=== PATIENT | female | born 1985 | race Caucasian/White ===

== ENCOUNTER 2025-04-30 22:33 | Inpatient (IN) ==
[2025-04-30] MEDS: SODIUM CHLORIDE 0.9% 1,000 ML IV ONE (22:42)
[2025-04-30] MEDS: SODIUM BICARB 8.4% INJ 50 MEQ/50 ML SYR IV ONE (22:52)
[2025-04-30] MEDS: LACTATED RINGER'S 2,000 ML IV ONE (22:53)
[2025-04-30] MEDS: CALCIUM CHLORIDE 10% 1,000 MG in DEXTROSE 5% 50 ML IV STA (22:54)
[2025-04-30] MEDS: PIPERACILLIN/TAZOBACTAM 4.5 GM/100 ML BAG IV ONE (22:57)
[2025-04-30 23:00] LABS: iSTAT Art Bld Gas Base Excess < -30.0 meg/L (-9-1.8)
[2025-04-30] MEDS: TXA 10% Non-IV Routes 100 MG/ML VIAL ONE ×2 (23:00→23:59)
[2025-04-30 23:03] LABS: Hematocrit (blood only) 26.5 % (37.0-47.0); Hemoglobin 8.0 g/dl (12.0-16.0); Mean Corpuscular Hemoglobin 31.9 pg (25.0-34.0); Mean Corpuscular Volume 105.6 fL (80.0-100.0); Platelet Count 213 K/uL (130-400); RDW Standard Deviation 57.0 fL (36.4-46.3); Red Blood Count 2.51 M/uL (4.20-5.40); White Blood Count 33.45 K/ul (4.8-10.8)
[2025-04-30] MEDS ORDERED: CARBOHYDRATES FOR HYPOGLYCEMIA PO PRN (23:04)
[2025-04-30] MEDS ORDERED: GLUCOSE 10 TAB/TUBE PO PRN (23:04)
[2025-04-30 23:08] LABS: Pregnancy Test, Serum Positive (Negative)
[2025-04-30] MEDS ORDERED: GLUCAGON FOR INJ 1 MG VIAL SQ PRN (23:08)
[2025-04-30] MEDS ORDERED: DEXTROSE 50% 50 ML SYRINGE IV PRN (23:08)
[2025-04-30] MEDS: CALCIUM CHLORIDE 10% 10 ML SYR IV ONE (23:23)
[2025-04-30 23:28] LABS: Acanthocytes 2+
[2025-04-30 23:30] LABS: Hemoglobin A1C 5.6 % (4.5-5.6)
[2025-04-30 23:32] LABS: ANC (manual) 21.74 K/uL (1.4-6.5); INR 1.1 (0.9-1.1); Prothrombin Time 12.3 Seconds (9.0-12.0)
[2025-04-30 23:37] LABS: Alanine Aminotransferase 11 U/L (7-52); Albumin Globulin Ratio 1.4 (0.9-2); Alkaline Phosphatase 44 U/L (34-104); Anion Gap 29 (3-11); Bilirubin,Total 0.3 mg/dl (0.2-1.0); Blood Urea Nitrogen 20 mg/dl (6-23); Calcium 7.8 mg/dl (8.6-10.3); Carbon Dioxide 5 mmol/L (21-32); Chloride 106 mmol/L (98-107); Globulin 1.7 gm/dl (2.5-4.0); Glucose 436 mg/dl (70-99(Fasting)); Lipase 50 U/L (11-82); Magnesium 2.9 mg/dl (1.7-2.4); Potassium 4.0 mmol/L (3.5-5.1); Sodium 140 mmol/L (136-145); Total Protein 4.1 gm/dl (6.0-8.3)
--- NOTE | 2025-04-30 23:41 | Emergency Department Note ---
Impression & Plan Vaginal bleeding, NOAH (acute kidney injury), Hypotension, Cardiac arrest, , DKA (diabetic ketoacidosis) ED Provider Note ED Provider Note NAME: LORRIE PATTERSON AGE:40 SEX: Female : 1985 ARRIVES VIA: EMS INFORMANT: Patient, EMS ED PROVIDER(s): Tarah Simmons DO CHIEF COMPLAINT: Vaginal bleeding, hypotension, cardiac arrest HPI: This is a 40-year-old female brought in by EMS due to concern for vaginal bleeding and unresponsive episode. EMS reported patient began having bleeding yesterday and thought she was having a miscarriage as she had had a recent positive home test. Family reported to EMS patient had an episode of passing out and then was unresponsive. Upon EMS arrival she was noted to be hypotensive, and minimally arousable, with some accompanying difficulty breathing. Upon rendezvous with another laundrette owner, patient still hypotensive after IV fluids were started, and subsequently arrested. EMS coded the patient for 7 to 8 minutes before achieving ROSC. She received CPR via the Denny and 2 doses of cardiac epi. Patient then given 1 unit of blood via EMS while IV fluids were continued. She was given 1gm TXA by EMS also. Patient had assisted ventilations with bagging, she was never intubated. EMS did note patient passed a softball sized clot during transport and continued to have active bleeding. Upon arrival here patient awake and talking, denied any chest pain, abdominal pain, or difficulty breathing. She stated this was her third , and that she had not had any OB care yet. PAST MEDICAL HISTORY:See Below PAST SURGICAL HISTORY:See Below FAMILY HISTORY:See Below SOCIAL HISTORY:See Below HOME MEDICATIONS:See Below ALLERGIES:See Below VITALS:See Below PHYSICAL EXAMINATION: GENERAL: alert, ill appearing, well nourished, no distress, non-toxic HEAD: nc/at EYE EXAM: normal conjunctiva, PERRL and EOM's grossly intact OROPHARYNX: no exudate, no erythema, lips, buccal mucosa, and tongue normal and mucous membranes are very dry NECK: supple, no nuchal rigidity, no adenopathy, non-tender LUNGS: Clear to auscultation. Normal chest wall mechanics, no w/r/r HEART: no murmurs, S1 normal and S2 normal ABDOMEN: abdomen soft, non-tender, normo-active bowel sounds, no masses, no rebound or guarding. REVIEW SCHEDULING COORDINATOR: normal external genitalia, bleeding and fresh clots noted at the vaginal introitus SKIN: no rashes, petechiae, orbruising; pallor UPPER EXTREMITIES: upper extremities are grossly normal. FROM, nml pulses b/l. No evidence of trauma or deformity. LOWER EXTREMITIES: No pitting edema. FROM, nml pulses b/l. No evidence of trauma or deformity. NEURO EXAM: Normal sensorium, cranial nerves II-XII grossly intact, normal speech, no facial droop,nogross weakness of arms, no gross weakness of legs. Gross sensation intact. No ataxia. Vital Signs: reviewed and remarkable Differential Diagnosis: Hemorrhagic shock, dysrhythmia, infection, NOAH, electrolyte abnormality, DKA, sepsis, placental abruption, ectopic , spontaneous , uterine rupture, as well as others were considered MEDICAL DECISION MAKING: This is a 40-year-old female brought in by EMS after cardiac arrest likely secondary to hemorrhagic shock from ongoing vaginal bleeding. Upon arrival patient awake and talking, hypotensive and tachycardic and ill-appearing. She had received a total of 1800 mL of IV fluids, 1gm, TXA, and 1 unit of packed red cells. Blood pressure here slightly improved compared to prehospital. Patient denied any pain or difficulty breathing. She was asking for something to drink. Patient stated no OB evaluation or confirmatory ultrasound yet since the positive home test. She confirmed bleeding started yesterday evening. Additional uncrossed match blood had been called for prior to patient's arrival and was ready at the bedside. Given the persistent hypotension and ongoing bleeding, IV fluids were continued and patient transfused an additional 2 units of packed red cells. Additional IV access was obtained, labs drawn and sent, and bedside ultrasound performed. No obvious IUP, no obvious hemoperitoneum. No large clots or products of conception noted with the vaginal bleeding seen on exam. On-call RISK COMPLIANCE ANALYST was contacted and asked to come to bedside to help manage the patient. Patient with improving blood pressures with additional IV fluids and blood products. [id number] BMP showed a first hemoglobin of 7.5, creatinine of 2.2, and glucose of 395. Patient denied any current medications or known past medical history. Patient noted to have an anion gap of 26. First [id number] ABG drawn by RT showed a pH of 6.7 and bicarb of less than 5. Following this result, patient given 2 amps of bicarb and 1 amp of calcium. Patient's blood pressure slowly improved. Following the 2 units at bedside, we held off on further transfusion pending further OB evaluation. Anesthesia also presented to bedside given concern for possible need for emergent operative intervention. Patient given empiric IV Zosyn additionally. seal delivery vehicle team technician contacted and asked to come to bedside urgently to assist with OB evaluation. Please see the OB consultation additionally as she was able to remove several clots and the bleeding did seem to slow. Patient's blood pressure did begin to drift down during this and so a another unit of packed cells was added. Ultrasound confirmed no further retained POC's. Specimen was sent for pathology from this OB evaluation at bedside. OB did not feel she needed taken to the OR at this time. Bicarb drip and insulin drip added based on those preliminary results. Patient's EKG without any obvious abnormalities. Other labs still pending while all of this was occurring. Patient's blood pressure improved following additional transfusion and continued IV fluid resuscitation. Initial Evans catheter placed without any return of urine. Following 3 L patient slowly began to produce urine. On-call ICU TRUCK DRIVER TEAMSTER was contacted also for further assistance in patient management and inpatient hospitalist team contacted additionally. Patient's blood pressure remained stable following the transfusion here. Further blood products were held as a precaution. MTP not activated as patient's bleeding began to slow and blood pressure stabilized after third unit transfused here in the ER (fourth unit overall). Consultation(s): 2300: Dr. Justin came to bedside and is evaluating the patient. 2322: ICU TRUCK DRIVER TEAMSTER came to bedside to assist with mgmt. 2341: Discussed with Dr. Ruiz, [facility] hospitalist team, for addition evaluation and mgmt. ER Treatment Provided: See below Diagnostics Interpreted By Me: -ECG: Sinus tachycardia at 108, normal axis, normal intervals, no acute ST/T wave changes -Cardiac Monitoring: An order was placed for continuous cardiac monitoring. The monitor shows a rate of 120 with sinus tachycardia rhythm. -Laboratory studies: As stated above and show below. -Imaging studies: X-ray Chest: A single view study of the chest was reviewed and was negative for cardiomegaly, focal infiltrate, effusion, pulmonary edema, or wide mediastinum. Triage Nursing Note Reviewed Prior/Outside Records Reviewed Critical Care: Critical care of 78 min performed to assess and manage high likelihood of life-threatening hemorrhagic shock and cardiac arrest, involving labs and imaging performed with assessment to evaluate vaginal bleeding diagnosis and unresponsive episode with frequent reassessment. This time includes bedside time, treatment discussions with patient/family/consultants, documentation time and excludes procedure time. Past Med/Surg History Problem List (Updated 05/01/25 @ 02:22 by Traah Simmons, DO) DKA (diabetic ketoacidosis) (Acute) (Acute) Cardiac arrest (Acute) Vaginal bleeding (Acute) Hyperglycemia, unspecified High anion gap metabolic acidosis NOAH (acute kidney injury) (Acute) Spontaneous complicated by delayed or excessive hemorrhage Hypotension (Acute) Hemorrhage Complete miscarriage Medical History Migraine Family History Other Migraine Social History Smoking Status: Current every day smoker Tobacco Type: Cigarettes Cigarettes Per Day: 3; Second Hand Exposure: No; Do You Dip or Chew Tobacco: No; Tobacco Cessation Education Requested by Patient: No Hx Alcohol Use: No Hx Substance Use: No Preferred Language: Greek Communication Ability: Effective Human Anatomy Teacher Required: No Beliefs That Will Affect Care: None Current Living Situation: Family Current Living Situation Comment: lives with mother Other Information That Helps Us Care for You: No Feels Safe at Home: Yes Safety Concerns: Feels Safe At This Time Assistive Devices: None Allergies Allergies Allergy/AdvReac Type Severity Reaction Status Date / Time latex Allergy Severe Swelling Verified 04/30/25 22:56 of Lip/Tongue/Throat procaine [From Novocain] Allergy Severe Anaphylaxis--ALL Verified 04/30/25 22:56 "RADHA" MEDICATIONS Home Meds Home Medications Medication Instructions Recorded Confirmed ibuprofen 200 mg tablet 400 - 600 mg PO DIRECTED PRN 04/30/25 04/30/25 Pain Results & Data (ED) Vital Signs Vital Signs - 24 hr 04/30/25 22:33 04/30/25 22:36 04/30/25 22:37 Temperature Pulse Rate 116 H 117 H Pulse Rate from SpO2 Sensor 115 H Respiratory Rate 34 H Blood Pressure Blood Pressure Mean Pulse Oximetry 100 Sepsis Recent Fever Within 48 Hours No Sepsis New/Unexplained Change in Mental Status N/A Sepsis Action Taken by Nursing No Action Required 04/30/25 22:40 04/30/25 22:40 04/30/25 22:40 Temperature Pulse Rate Pulse Rate from SpO2 Sensor Respiratory Rate Blood Pressure 102/83 102/83 102/83 Blood Pressure Mean 95 95 95 Pulse Oximetry Sepsis Recent Fever Within 48 Hours Sepsis New/Unexplained Change in Mental Status Sepsis Action Taken by Nursing 04/30/25 22:42 04/30/25 22:45 04/30/25 23:05 Temperature Pulse Rate 120 H 121 H Pulse Rate from SpO2 Sensor 122 H 122 H Respiratory Rate 37 H 37 H Blood Pressure 95/66 L Blood Pressure Mean 73 Pulse Oximetry 100 95 Sepsis Recent Fever Within 48 Hours Sepsis New/Unexplained Change in Mental Status Sepsis Action Taken by Nursing 04/30/25 23:11 04/30/25 23:11 04/30/25 23:12 Temperature Pulse Rate 123 H Pulse Rate from SpO2 Sensor 123 H Respiratory Rate 33 H Blood Pressure 120/86 120/86 Blood Pressure Mean 100 100 Pulse Oximetry 100 Sepsis Recent Fever Within 48 Hours Sepsis New/Unexplained Change in Mental Status Sepsis Action Taken by Nursing 04/30/25 23:18 04/30/25 23:26 04/30/25 23:30 Temperature 33.6 C L Pulse Rate 119 H 113 H Pulse Rate from SpO2 Sensor 120 H 113 H Respiratory Rate 34 H 28 H Blood Pressure 109/82 Blood Pressure Mean 90 Pulse Oximetry 100 100 Sepsis Recent Fever Within 48 Hours Sepsis New/Unexplained Change in Mental Status Sepsis Action Taken by Nursing Laboratory Data 05/01/25 01:16 05/01/25 01:16 Lab Results 04/30/25 04/30/25 04/30/25 Range/Units 22:43 22:46 22:50 WBC 33.45 H* (4.8-10.8) K/ul RBC 2.51 L (4.20-5.40) M/uL Hgb 8.0 L (12.0-16.0) g/dl POC Hgb 7.8 L (12.0-16.0) g/dl Hct 26.5 L (37.0-47.0) % POC Hct 23 L (37-47) % MCV 105.6 H (80.0-100.0) fL MCH 31.9 (25.0-34.0) pg MCHC 30.2 L (32.0-36.0) g/dL RDW Std Deviation 57.0 H (36.4-46.3) fL RDW Coeff of Siddhartha 14.6 H (11.5-14.5) % Plt Count 213 (130-400) K/uL MPV 11.7 (9.4-12.4) fL Absolute Nucleated RBC 0.02 (0.00-0.12) K/uL Nucleated RBC % (auto) 0.1 % Neutrophils % (Manual) 65 % Neutrophils # (Manual) 21.74 H (1.40-6.50) K/uL Total Absolute Neuts 21.74 H (1.4-6.5) K/uL Acanthocytes (Spur) 2+ PT 12.3 H (9.0-12.0) Seconds INR 1.1 (0.9-1.1) POC pH 6.74 L* (7.35-7.45) POC pCO2 14 L (35-46) mmHg POC pO2 152 H (80-95) mmHg POC HCO3 2 L (19-24) cary/L POC Total CO2 < 5 L* (24-31) mmol/L POC Base Excess < -30.0 L (-9-1.8) cary/L POC ABG O2 Sat 95.0 (90-95) % POC Sodium 136 (135-144) mmol/L Sodium 140 (136-145) mmol/L POC Potassium 4.8 (3.3-5.0) mmol/L Potassium 4.0 (3.5-5.1) mmol/L Chloride 106 (98-107) mmol/L Carbon Dioxide 5 L* (21-32) mmol/L Anion Gap 29 H (3-11) BUN 20 (6-23) mg/dl Creatinine 2.58 H (0.6-1.2) mg/dl Est Cr Clr Drug Dosing Not Reportable eGFR 23.57 BUN/Creatinine Ratio 7.8 L (10-20) Glucose 436 H* (70-99(Fasting)) mg/dl Estimat Average Glucose 114 mg/dl Hemoglobin A1c 5.6 (4.5-5.6) % Calcium 7.8 L (8.6-10.3) mg/dl Magnesium 2.9 H (1.7-2.4) mg/dl Total Bilirubin 0.3 (0.2-1.0) mg/dl AST 18 (13-39) U/L ALT 11 (7-52) U/L Alkaline Phosphatase 44 (34-104) U/L Troponin I High Sens 247.2 H* (0-14) pg/ml Total Protein 4.1 L (6.0-8.3) gm/dl Albumin 2.4 L (3.4-5.0) gm/dl Globulin 1.7 L (2.5-4.0) gm/dl Albumin/Globulin Ratio 1.4 (0.9-2) Lipase 50 (11-82) U/L Procalcitonin (0-0.5) ng/ml HCG, Qual Positive (Negative) HCG, Quant 1028 mIU/ml Ethyl Alcohol mg/dL (<10.0) mg/dl Blood Type A Positive Blood Type Recheck Antibody Screen NEGATIVE Crossmatch See Detail 04/30/25 04/30/25 Range/Units 23:02 23:25 WBC (4.8-10.8) K/ul RBC (4.20-5.40) M/uL Hgb (12.0-16.0) g/dl POC Hgb (12.0-16.0) g/dl Hct (37.0-47.0) % POC Hct (37-47) % MCV (80.0-100.0) fL MCH (25.0-34.0) pg MCHC (32.0-36.0) g/dL RDW Std Deviation (36.4-46.3) fL RDW Coeff of Siddhartha (11.5-14.5) % Plt Count (130-400) K/uL MPV (9.4-12.4) fL Absolute Nucleated RBC (0.00-0.12) K/uL Nucleated RBC % (auto) % Neutrophils % (Manual) % Neutrophils # (Manual) (1.40-6.50) K/uL Total Absolute Neuts (1.4-6.5) K/uL Acanthocytes (Spur) PT (9.0-12.0) Seconds INR (0.9-1.1) POC pH (7.35-7.45) POC pCO2 (35-46) mmHg POC pO2 (80-95) mmHg POC HCO3 (19-24) cary/L POC Total CO2 (24-31) mmol/L POC Base Excess (-9-1.8) cary/L POC ABG O2 Sat (90-95) % POC Sodium (135-144) mmol/L Sodium (136-145) mmol/L POC Potassium (3.3-5.0) mmol/L Potassium (3.5-5.1) mmol/L Chloride (98-107) mmol/L Carbon Dioxide (21-32) mmol/L Anion Gap (3-11) BUN (6-23) mg/dl Creatinine (0.6-1.2) mg/dl Est Cr Clr Drug Dosing eGFR BUN/Creatinine Ratio (10-20) Glucose (70-99(Fasting)) mg/dl Estimat Average Glucose mg/dl Hemoglobin A1c (4.5-5.6) % Calcium (8.6-10.3) mg/dl Magnesium (1.7-2.4) mg/dl Total Bilirubin (0.2-1.0) mg/dl AST (13-39) U/L ALT (7-52) U/L Alkaline Phosphatase (34-104) U/L Troponin I High Sens (0-14) pg/ml Total Protein (6.0-8.3) gm/dl Albumin (3.4-5.0) gm/dl Globulin (2.5-4.0) gm/dl Albumin/Globulin Ratio (0.9-2) Lipase (11-82) U/L Procalcitonin 0.14 (0-0.5) ng/ml HCG, Qual (Negative) HCG, Quant mIU/ml Ethyl Alcohol mg/dL < 10.0 (<10.0) mg/dl Blood Type Blood Type Recheck A Positive Antibody Screen Crossmatch Administered Medications Sodium Bicarbonate 150 meq/ (Sterile Water) 1,150 mls @ 150 mls/hr IV .Q7H40M KATELYN Stop: 05/30/25 23:14 Last Admin: 05/01/25 02:41 Dose: Not Given Documented By: Admin: 05/01/25 00:00 Dose: 150 mls/hr Documented By: Oxycodone HCl (Oxycodone Hcl Ir 5 Mg Tab (Immediate Release)) 5 mg PO Q4H PRN PRN Reason: Pain Stop: 05/14/25 23:52 Last Admin: 05/01/25 02:33 Dose: 5 mg Documented By: TP Discontinued Medications Calcium Chloride (Calcium Chloride 10% 10 Ml Syr) Confirm Administered Dose 2,000 mg IV .STK-MED ONE Stop: 04/30/25 22:51 Last Admin: 04/30/25 23:23 Dose: Not Given Documented By: KENAND Fentanyl Citrate (Fentanyl Citrate Pf 100 Mcg/2 Ml Vial) 50 mcg IV NOW STA Stop: 04/30/25 23:09 Last Admin: 04/30/25 23:11 Dose: 50 mcg Documented By: LEELEE Sodium Chloride (Nss) 1,000 mls @ 999 mls/hr IV .Q1H1M ONE Stop: 04/30/25 23:39 Last Infusion: 05/01/25 00:06 Dose: Infused Documented By: Admin: 04/30/25 22:42 Dose: 999 mls/hr Documented By: LEELEE Piperacillin Sod/Tazobactam Sod (Zosyn) 4.5 gm in 100 mls @ 200 mls/hr IV NOW ONE; Protocol Stop: 04/30/25 23:15 Last Infusion: 05/01/25 00:06 Dose: Infused Documented By: Admin: 04/30/25 22:57 Dose: 200 mls/hr Documented By: LEELEE Lactated Ringer's (Lr) 2,000 mls @ 999 mls/hr IV .Q2H1M ONE Stop: 05/01/25 00:50 Last Infusion: 05/01/25 00:06 Dose: Infused Documented By: Admin: 04/30/25 22:53 Dose: 999 mls/hr Documented By: LEELEE Insulin Human Regular 250 (units/ Sodium Chloride) 250 mls @ 8.3 mls/hr IV .Q24H KATELYN; Protocol Stop: 05/30/25 23:14 Last Admin: 05/01/25 01:42 Dose: Not Given Documented By: TP Co-signed By: ESKaitlin Calcium Chloride 1,000 mg/ (Dextrose) 60 mls @ 240 mls/hr IV NOW STA Stop: 04/30/25 23:36 Last Infusion: 05/01/25 00:06 Dose: Infused Documented By: Admin: 04/30/25 22:54 Dose: 240 mls/hr Documented By: LCD Calcium Gluconate () 1,000 mg in 60 mls @ 240 mls/hr IV NOW Stop: 04/30/25 23:53 Last Admin: 05/01/25 01:40 Dose: Not Given Documented By: TP Insulin Human Regular (Novolin-R Bolus From Bag) 8 units IV ONE ONE Stop: 04/30/25 23:16 Last Admin: 05/01/25 01:42 Dose: Not Given Documented By: TP Insulin Human Regular (Novolin-R Insulin Per Unit Charge) 5 units IV NOW Stop: 04/30/25 23:41 Last Admin: 04/30/25 23:53 Dose: 5 units Documented By: Co-signed By: DML Insulin Pump (Dc Home Insulin Pump) 1 each N/A NOW Stop: 04/30/25 23:05 Last Admin: 05/01/25 01:41 Dose: Not Given Documented By: TP Methylergonovine Maleate (Methylergonovine Maleate 0.2 Mg/Ml Amp) 0.2 mg IM ONE Stop: 04/30/25 22:45 Last Admin: 05/01/25 01:40 Dose: Not Given Documented By: TP Miscellaneous (Stat Iv/Im) 1 each N/A NOW Stop: 04/30/25 23:02 Last Admin: 05/01/25 00:06 Dose: 1 each Documented By: Miscellaneous (Dka Goal Range 150-250 Mg/Dl) 1 each N/A ONE ONE Stop: 04/30/25 23:05 Last Admin: 05/01/25 01:41 Dose: Not Given Documented By: TP Miscellaneous (Stat Iv Infusion Titration Per Protocol) 1 each N/A NOW Stop: 04/30/25 23:09 Last Admin: 05/01/25 01:39 Dose: Not Given Documented By: TP Misoprostol (Misoprostol 200 Mcg Tab) 1,000 mcg NM NOW ONE Stop: 04/30/25 22:45 Last Admin: 04/30/25 23:32 Dose: 600 mcg Documented By: LEELEE Norepinephrine Bitartrate (Norepinephrine/D5w 4 Mg/250 Ml) Confirm Administered Dose 4 mg IV .STK-MED ONE Stop: 04/30/25 22:23 Last Admin: 04/30/25 23:59 Dose: Not Given Documented By: Sodium Bicarbonate (Sodium Bicarb 8.4% Inj 50 Meq/50 Ml Syr) Confirm Administered Dose 100 meq IV .STK-MED ONE Stop: 04/30/25 22:49 Last Admin: 04/30/25 22:52 Dose: 100 meq Documented By: LEELEE Tranexamic Acid (Txa 10% Non-Iv Routes 100 Mg/Ml Vial) Confirm Administered Dose 2,000 mg .ROUTE .STK-MED ONE Stop: 04/30/25 22:19 Last Admin: 04/30/25 23:00 Dose: 2,000 mg Documented By: Tranexamic Acid (Tranexamic Acid / 0.7% Nacl 1000mg/100ml Bag) Confirm Administered Dose 1,000 mg IV .STK-MED ONE Stop: 04/30/25 22:20 Last Admin: 04/30/25 23:59 Dose: Not Given Documented By: Tranexamic Acid (Txa 10% Non-Iv Routes 100 Mg/Ml Vial) Confirm Administered Dose 1,000 mg .ROUTE .STK-MED ONE Stop: 04/30/25 22:20 Last Admin: 04/30/25 23:59 Dose: 1,000 mg Documented By: Tranexamic Acid (Tranexamic Acid / 0.7% Nacl 1000mg/100ml Bag) Confirm Administered Dose 1,000 mg IV .STK-MED ONE Stop: 04/30/25 22:21 Last Admin: 04/30/25 23:59 Dose: Not Given Documented By: Imaging Data Radiologist's Impression: Chest X-Ray 04/30/25 22:39 Exam(s): XR CXR 1 VIEW EXAM: XR Chest, 1 View CLINICAL HISTORY: Reason for exam: HYPOTENSION. TECHNIQUE: Frontal view of the chest. COMPARISON: None FINDINGS: Hardware: None. Lungs/pleura: Mild bibasilar opacities likely represent atelectasis. No focal consolidation. No pleural effusion or pneumothorax. Heart/mediastinum: Normal. No cardiomegaly. Soft tissues: Unremarkable. Bones: No acute fracture. Upper abdomen: Normal. IMPRESSION: Mild bibasilar opacities likely represent atelectasis. No focal consolidation. Electronically signed by: Prateek Madrigal M.D. 05/01/25 02:36 AM Discharge Plan Visit Data Chief Complaint: Vaginal Bleeding Stated Complaint: Miscarriage ED Provider: Tarah Simmons Discharge Problem: Vaginal bleeding, NOAH (acute kidney injury), Hypotension, Cardiac arrest, , DKA (diabetic ketoacidosis) Patient Disposition: Admitted As Inpatient Condition: Critical Discharge Instructions Interventions: ED Discharge Assessment Last Done: 05/01/25 00:22
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
[2025-04-30] MEDS ORDERED: PROMETHAZINE 6.25 MG/50.25 ML BAG IV PRN (23:53)
[2025-04-30] MEDS: NovoLIN-R INSULIN PER UNIT CHARGE IV STA (23:53)
[2025-04-30] MEDS ORDERED: HYDROmorphone INJ 0.5 MG/0.5 ML SYR IV PRN (23:53)
[2025-04-30 23:55] LABS: iSTAT Art Bld Gas Base Excess -26.0 meg/L (-9-1.8)
[2025-04-30] MEDS: TRANEXAMIC ACID / 0.7% NACL 1000MG/100ML BAG IV ONE ×2 (23:59)
[2025-04-30] MEDS: NOREPINEPHRINE/D5W 4 MG/250 ML IV ONE (23:59)
[2025-05-01] MEDS: SODIUM BICARBONATE 8.4% 150 MEQ in WATER, STERILE 1,000 ML IV SCH
[2025-05-01] MEDS: STAT IV/IM STA (00:06)
[2025-05-01] MEDS: STAT IV Infusion **Titration per Protocol STA (01:39)
[2025-05-01] MEDS: CALCIUM GLUCONATE 1,000 MG/60 ML BAG IV STA (01:40)
[2025-05-01] MEDS: METHYLERGONOVINE MALEATE 0.2 MG/ML AMP IM STA (01:40)
[2025-05-01] MEDS: DKA GOAL RANGE 150-250 mg/dl ONE (01:41)
[2025-05-01] MEDS: DC HOME INSULIN PUMP STA (01:41)
[2025-05-01] MEDS: NovoLIN-R BOLUS FROM BAG IV ONE (01:42)
[2025-05-01] MEDS: INSULIN REGULAR 250 UNITS in SODIUM CHLORIDE 0.9% 247.5 ML IV SCH (01:42)
[2025-05-01 01:46] LABS: Hematocrit (blood only) 42.5 % (37.0-47.0); Hemoglobin 14.6 g/dl (12.0-16.0); Mean Corpuscular Hemoglobin 30.9 pg (25.0-34.0); Mean Corpuscular Volume 89.9 fL (80.0-100.0); Platelet Count 200 K/uL (130-400); RDW Standard Deviation 48.9 fL (36.4-46.3); Red Blood Count 4.73 M/uL (4.20-5.40); White Blood Count 34.78 K/ul (4.8-10.8)
[2025-05-01 01:58] LABS: Anion Gap 21.0 (3-11); Calcium 8.0 mg/dl (8.6-10.3); Carbon Dioxide 12.0 mmol/L (21-32); Chloride 108.0 mmol/L (98-107); Potassium 3.2 mmol/L (3.5-5.1); Sodium 141.0 mmol/L (136-145)
[2025-05-01 02:08] LABS: Blood Urea Nitrogen 22.0 mg/dl (6-23)
[2025-05-01 02:09] LABS: Creatinine Clr Calc Pharmacy 39.3 ml/min; Glucose 154.0 mg/dl (70-99(Fasting))
[2025-05-01 02:17] LABS: Thyroid Stimulating Hormone 3.489 uIu/ml (0.300-4.500)
[2025-05-01 02:20] LABS: Acetaminophen < 3 ug/ml (10-30); Creatine Kinase 5455.0 U/L (26-192); Salicylate < 3.0 mg/dl (3.0-30)
--- NOTE | 2025-05-01 02:37 | XRay Report ---
Exam(s): XR CXR 1 VIEW EXAM: XR Chest, 1 View CLINICAL HISTORY: Reason for exam: HYPOTENSION. TECHNIQUE: Frontal view of the chest. COMPARISON: None FINDINGS: Hardware: None. Lungs/pleura: Mild bibasilar opacities likely represent atelectasis. No focal consolidation. No pleural effusion or pneumothorax. Heart/mediastinum: Normal. No cardiomegaly. Soft tissues: Unremarkable. Bones: No acute fracture. Upper abdomen: Normal. IMPRESSION: Mild bibasilar opacities likely represent atelectasis. No focal consolidation. Electronically signed by: Prateek Madrigal M.D. 05/01/25 02:36 AM
[2025-05-01 02:46] LABS: Acanthocytes 1+; Immature Granulocytes # (auto) 1.42 K/uL (0.01-0.20); Immature Granulocytes % (auto) 4.1 %; Polychromasia 2+
--- NOTE | 2025-05-01 02:59 | Ultrasound Report ---
Exam(s): US PELVIS EXAM: US Pelvis Transabdominal, limited CLINICAL HISTORY: Reason for exam: vaginal bleeding, preg. bedside ultrasound to R/O RPOC. TECHNIQUE: Real-time limited transabdominal pelvic ultrasound with image documentation. COMPARISON: None FINDINGS/ IMPRESSION: Limited evaluation of the endometrium. Endometrium appears thin without evidence of associated color Doppler flow. No sonographic evidence for retained products of conception. Electronically signed by: Prateek Madrigal M.D. 05/01/25 02:58 AM
[2025-05-01] MEDS: POTASSIUM CHLORIDE CRTAB 20 MEQ TABCR PO STA ×2 (03:15→06:33)
[2025-05-01 05:31] LABS: Hematocrit (blood only) 33.3 % (37.0-47.0); Hemoglobin 11.9 g/dl (12.0-16.0); Mean Corpuscular Hemoglobin 30.6 pg (25.0-34.0); Mean Corpuscular Volume 85.6 fL (80.0-100.0); Platelet Count 153 K/uL (130-400); RDW Standard Deviation 47.9 fL (36.4-46.3); Red Blood Count 3.89 M/uL (4.20-5.40); White Blood Count 28.49 K/ul (4.8-10.8)
[2025-05-01 05:47] LABS: Anion Gap 11.0 (3-11); Blood Urea Nitrogen 24.0 mg/dl (6-23); Calcium 7.5 mg/dl (8.6-10.3); Carbon Dioxide 21.0 mmol/L (21-32); Chloride 107.0 mmol/L (98-107); Creatinine Clr Calc Pharmacy 42.3 ml/min; Glucose 106.0 mg/dl (70-99(Fasting)); Magnesium 2.0 mg/dl (1.7-2.4); Potassium 3.1 mmol/L (3.5-5.1); Sodium 139.0 mmol/L (136-145)
[2025-05-01 05:56] LABS: Immature Granulocytes # (auto) 0.48 K/uL (0.01-0.20); Immature Granulocytes % (auto) 1.7 %; Polychromasia 1+
[2025-05-01] MEDS: PIPERACILLIN/TAZOBACTAM 4.5 GM/100 ML BAG IV SCH (06:32)
[2025-05-01] MEDS: POTASSIUM CHLORIDE / WTR 10 MEQ/100 ML PLCT IV SCH (06:34)
[2025-05-01] MEDS: ACETAMINOPHEN 325 MG TAB PO PRN (07:28)
--- NOTE | 2025-05-01 07:29 | Ultrasound Report ---
EXAM: US venous doppler LE BI CLINICAL HISTORY: Leg swelling. TECHNIQUE: Bilateral lower extremity venous Doppler with reflux is performed. COMPARISON: None. FINDINGS: The superficial and deep venous system of both lower limbs is scanned. The examined deep venous system veins include the common femoral vein, femoral vein, popliteal vein, peoneal vein, PTV, and ATV. The examined superficial venous system veins include a great saphenous vein proximal. Normal phasic, non-pulsatile, and spontaneous flow is noted in the examined veins with adequate compressibility. IMPRESSION: No evidence of superficial and deep venous thrombosis DISCLAIMER:DVT could be missed early in the disease when clot burden is minimal. For patients with moderate and high pretest probability of DVT and negative ultrasound, the [employer] clinical guidelines recommend testing with a D-dimer assay or repeat ultrasound in 5-7 days. If symptoms worsen, the Society of radiologists in ultrasound recommends repeating ultrasound even earlier. Electronically signed by Henry Farrell 05-01-2025 07:29 AM
[2025-05-01] MEDS ORDERED: INSULIN ASPART PER UNIT CHARGE SC SCH (07:30)
--- NOTE | 2025-05-01 09:15 | Critical Care Progress Note ---
Date of Service May 01, 2025 Assessment & Plan (1) Spontaneous complicated by delayed or excessive hemorrhage: (2) Complete miscarriage: (3) Hypotension: (4) NOAH (acute kidney injury): (5) High anion gap metabolic acidosis: (6) Hyperglycemia, unspecified: Plan Reason Critically Ill: 1. Spontaneous (complete miscarriage) with hemorrhage 2. Acute kidney injury, prerenal 3. HAGMA 4. Hyperglycemia without known history of DM 5. Hypotension, resolved 6. Cardiac arrest s/p ROSC 7. Leukocytosis with neutrophil predominance 8. Acute blood loss anemia 9. NSTEMI II, demand ischemia Neuro -no issue Cardiac -hypotension resolved. No issues. Some chest pain associated with no CPR. Lactate clearing Respiratory -no current issues GI - Diet: NPO except meds, advance as tolerated SUP: N/A Bowel regimen: Start tomorrow RENAL/LYTES -kidney function improving today. Electrolytes stable. Continue to replace. Lactate pending Replete electrolytes as indicated Evans for accurate I/Os Maintain net even to net negative following resuscitation ENDO - Hyperglycemia, A1c pending Has hirsutism, no known history of PCOS. Consider measuring testosterone. Pelvic US is pending BG 140-180 per SCCM guidelines ISS if needed while inpatient HEME - No acute concerns Coags WNL ID -patient is on empiric Zosyn. White blood cell count improving. 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 She is stable to transfer out of the ICU. Critical care services will sign off. Feel free to contact us with questions or concerns Admission and Anticipated Discharge Date Admission Date: April 30, 2025 Subjective Patient seen and examined. EMR viewed. And discussed with bedside critical care nurse as well as on multidisciplinary rounds. Patient reports she is feeling well this morning. Her only complaint is some chest discomfort associated with the compressions that she received. No abdominal pain. She does not much of an appetite but no nausea or vomiting. She has not had any recurrent bleeding. She denies any shortness of breath. No neurological symptoms Review of Systems Review of Systems: All systems reviewed & are unremarkable except as noted in Subjective Physical Exam Constitutional: WD/WN, vitals as above ENMT: Poor dentition Hirsute Neck: trachea midline, no thyromegaly Respiratory: normal respiratory effort, lungs clear to auscultation Cardiovascular: RRR, no murmur, no edema Gastrointestinal (Abdomen): normal bowel sounds, soft, nontender, no hepatosplenomegaly Musculoskeletal: Extremities: extremities normal to inspection Skin: no rashes, warm and dry Neurologic: Nonfocal exam Lymphatic: no cervical lymphadenopathy Results & Data Results & Data Vital Signs (Past 12 Hours) Vital Signs Temp Pulse Resp BP Pulse Ox 05/01/25 08:00 36.6 C 05/01/25 08:00 118/68 05/01/25 08:00 82 20 99 05/01/25 07:57 84 21 98 05/01/25 07:42 83 20 99 05/01/25 07:00 138/78 05/01/25 05:06 76 19 100 05/01/25 05:00 129/86 05/01/25 04:54 80 20 98 05/01/25 04:00 78 22 99 05/01/25 04:00 134/78 05/01/25 04:00 134/78 05/01/25 03:03 76 25 H 99 05/01/25 03:00 123/98 05/01/25 03:00 123/98 05/01/25 03:00 123/98 05/01/25 02:51 78 24 100 05/01/25 02:32 123/102 H 05/01/25 02:32 123/102 H 05/01/25 02:24 87 27 H 100 05/01/25 02:03 87 28 H 98 05/01/25 02:01 107/87 05/01/25 01:39 88 25 H 98 05/01/25 01:36 97 H 23 98 05/01/25 01:15 108 H 28 H 96 05/01/25 01:03 113 H 28 H 95 05/01/25 01:02 140/96 05/01/25 01:02 140/96 05/01/25 00:14 32 C L 05/01/25 00:12 110 H 35 H 98 05/01/25 00:03 116 H 24 100 04/30/25 23:57 113 H 30 H 139/87 100 04/30/25 23:51 117 H 32 H 99 04/30/25 23:42 117 H 37 H 133/83 100 04/30/25 23:30 33.6 C L 113 H 28 H 100 04/30/25 23:26 109/82 04/30/25 23:18 119 H 34 H 100 04/30/25 23:12 123 H 33 H 100 04/30/25 23:11 120/86 04/30/25 23:11 120/86 04/30/25 23:05 95/66 L 04/30/25 22:45 121 H 37 H 95 04/30/25 22:42 120 H 37 H 100 04/30/25 22:40 102/83 04/30/25 22:40 102/83 04/30/25 22:40 102/83 04/30/25 22:37 117 H 04/30/25 22:36 116 H 34 H 100 Critical Care Results & Data Vital Signs (Past 12 Hours) Vital Signs Temp Pulse Resp BP Pulse Ox 05/01/25 08:00 36.6 C 05/01/25 08:00 118/68 05/01/25 08:00 82 20 99 05/01/25 07:57 84 21 98 05/01/25 07:42 83 20 99 05/01/25 07:00 138/78 05/01/25 05:06 76 19 100 05/01/25 05:00 129/86 05/01/25 04:54 80 20 98 05/01/25 04:00 78 22 99 05/01/25 04:00 134/78 05/01/25 04:00 134/78 05/01/25 03:03 76 25 H 99 05/01/25 03:00 123/98 05/01/25 03:00 123/98 05/01/25 03:00 123/98 05/01/25 02:51 78 24 100 05/01/25 02:32 123/102 H 05/01/25 02:32 123/102 H 05/01/25 02:24 87 27 H 100 05/01/25 02:03 87 28 H 98 05/01/25 02:01 107/87 05/01/25 01:39 88 25 H 98 05/01/25 01:36 97 H 23 98 05/01/25 01:15 108 H 28 H 96 05/01/25 01:03 113 H 28 H 95 05/01/25 01:02 140/96 05/01/25 01:02 140/96 05/01/25 00:14 32 C L 05/01/25 00:12 110 H 35 H 98 05/01/25 00:03 116 H 24 100 04/30/25 23:57 113 H 30 H 139/87 100 04/30/25 23:51 117 H 32 H 99 04/30/25 23:42 117 H 37 H 133/83 100 04/30/25 23:30 33.6 C L 113 H 28 H 100 04/30/25 23:26 109/82 04/30/25 23:18 119 H 34 H 100 04/30/25 23:12 123 H 33 H 100 04/30/25 23:11 120/86 04/30/25 23:11 120/86 04/30/25 23:05 95/66 L 04/30/25 22:45 121 H 37 H 95 04/30/25 22:42 120 H 37 H 100 04/30/25 22:40 102/04/30/25 22:40 102/83 04/30/25 22:40 102/83 04/30/25 22:37 117 H 04/30/25 22:36 116 H 34 H 100 Lab & Micro Results (Past 24 Hours) RBC 3.89 M/uL (4.20-5.40) L 05/01/25 WBC 28.49 K/ul (4.8-10.8) H 05/01/25 Hgb 11.9 g/dl (12.0-16.0) L 05/01/25 Hct 33.3 % (37.0-47.0) L 05/01/25 MCV 85.6 fL (80.0-100.0) 05/01/25 MCH 30.6 pg (25.0-34.0) 05/01/25 MCHC 35.7 g/dL (32.0-36.0) 05/01/25 RDW Standard Deviation 47.9 fL (36.4-46.3) H 05/01/25 RDW Coefficient of Variation 15.4 % (11.5-14.5) H 05/01/25 Plt Count 153 K/uL (130-400) 05/01/25 MPV 11.1 fL (9.4-12.4) 05/01/25 Nucleated Red Blood Cells % (auto) 0.1 % 05/01 Nucleated RBC Absolute Count (auto) 0.02 K/uL (0.00-0.12) 0 05/01/25 Neutrophils (%) (Auto) 90.1 % 05/01/25 Lymphocytes (%) (Auto) 3.3 % 05/01/25 Monocytes # (Auto) 1.34 K/uL (0.11-0.59) H 05/01/25 Eosinophils # (Auto) 0.00 K/uL (0.00-0.50) 05/01/25 Immature Granulocyte % (Auto) 1.7 % 05/01/25 Neutrophils # (Auto) 25.66 K/uL (1.40-6.50) H 05/01/25 Lymphocytes # (Auto) 0.94 K/uL (1.20-3.40) L 05/01/25 Monocytes # (Auto) 1.34 K/uL (0.11-0.59) H 05/01/25 Eosinophils # (Auto) 0.00 K/uL (0.00-0.50) 05/01/25 Basophils # (Auto) 0.07 K/uL (0.00-0.20) 05/01/25 Immature Granulocyte # (Auto) 0.48 K/uL (0.01-0.20) H 05/01 ANC 21.74 K/uL (1.4-6.5) H 04/30/25 Neutrophils % (Manual) 65 % 04/30/25 Neutrophils # (Manual) 21.74 K/uL (1.40-6.50) H 04/30/25 Polychromasia 1+ 05/01/25 Echinocytes 1+ 05/01/25 Acanthocytes 1+ 05/01/25 Na 139 mmol/L (136-145) 05/01/25 K 3.1 mmol/L (3.5-5.1) L 05/01/25 Cl 107 mmol/L (98-107) 05/01/25 CO2 21 mmol/L (21-32) 05/01/25 Anion Gap 11 (3-11) 05/01/25 BUN 24 mg/dl (6-23) H 05/01/25 Creatinine 1.98 mg/dl (0.6-1.2) H 05/01/25 BUN/Creatinine Ratio 12.1 (10-20) 05/01/25 Glu 106 mg/dl (70-99(Fasting)) H 05/01/25 Ca 7.5 mg/dl (8.6-10.3) L 05/01/25 Phosphorus Level 3.8 mg/dl (2.5-4.9) 05/01/25 Total Bilirubin 0.3 mg/dl (0.2-1.0) 04/30/25 AST 18 U/L (13-39) 04/30/25 ALT 11 U/L (7-52) 04/30/25 Alkaline Phosphatase 44 U/L (34-104) 04/30/25 TP 4.1 gm/dl (6.0-8.3) L 04/30/25 Albumin 2.4 gm/dl (3.4-5.0) L 04/30/25 Globulin 1.7 gm/dl (2.5-4.0) L 04/30/25 Albumin/Globulin Ratio 1.4 (0.9-2) 04/30/25 Mg 2.0 mg/dl (1.7-2.4) 05/01/25 04:57 Calcium Level 7.5 mg/dl (8.6-10.3) L 05/01/25 04:57 Prothromb Time International Ratio 1.1 (0.9-1.1) 04/30/25 22:5 0 Diagnostic Findings (Past 24 Hours) Chest X-Ray 04/30/25 22:39 Exam(s): XR CXR 1 VIEW EXAM: XR Chest, 1 View CLINICAL HISTORY: Reason for exam: HYPOTENSION. TECHNIQUE: Frontal view of the chest. COMPARISON: None FINDINGS: Hardware: None. Lungs/pleura: Mild bibasilar opacities likely represent atelectasis. No focal consolidation. No pleural effusion or pneumothorax. Heart/mediastinum: Normal. No cardiomegaly. Soft tissues: Unremarkable. Bones: No acute fracture. Upper abdomen: Normal. IMPRESSION: Mild bibasilar opacities likely represent atelectasis. No focal consolidation. Electronically signed by: Prateek Madrigal M.D. 05/01/25 02:36 AM Pelvis Ultrasound 04/30/25 23:03 Exam(s): US PELVIS EXAM: US Pelvis Transabdominal, limited CLINICAL HISTORY: Reason for exam: vaginal bleeding, preg. bedside ultrasound to R/O RPOC. TECHNIQUE: Real-time limited transabdominal pelvic ultrasound with image documentation. COMPARISON: None FINDINGS/ IMPRESSION: Limited evaluation of the endometrium. Endometrium appears thin without evidence of associated color Doppler flow. No sonographic evidence for retained products of conception. Electronically signed by: Prateek Madrigal M.D. 05/01/25 02:58 AM Venous Doppler Study 05/01/25 00:09 EXAM: US venous doppler LE BI CLINICAL HISTORY: Leg swelling. TECHNIQUE: Bilateral lower extremity venous Doppler with reflux is performed. COMPARISON: None. FINDINGS: The superficial and deep venous system of both lower limbs is scanned. The examined deep venous system veins include the common femoral vein, femoral vein, popliteal vein, peoneal vein, PTV, and ATV. The examined superficial venous system veins include a great saphenous vein proximal. Normal phasic, non-pulsatile, and spontaneous flow is noted in the examined veins with adequate compressibility. IMPRESSION: No evidence of superficial and deep venous thrombosis DISCLAIMER:DVT could be missed early in the disease when clot burden is minimal. For patients with moderate and high pretest probability of DVT and negative ultrasound, the [employer] clinical guidelines recommend testing with a D-dimer assay or repeat ultrasound in 5-7 days. If symptoms worsen, the Society of radiologists in ultrasound recommends repeating ultrasound even earlier. Electronically signed by Henry Farrell 05-01-2025 07:29 AM I & O Totals 24 Hours 04/30/25 05/01/25 05/02/25 06:59 06:59 06:59 Intake Total 3760 / 3760 1510 / 1510 Output Total 950 / 950 250 / 250 Balance 2810 / 2810 1260 / 1260 Cumulative 04/30/25 21:49 thru 05/01/25 08:46 Intake Total 5270 Output Total 1200 Balance 4070 RT Ventilator Mngmt (Last Documented) Ventilator Ordered Settings Respiratory Rate 20 05/01/25 08:00 Ventilator - PT Measurements Respiratory Rate 20 Coding Level of Care Code 85759 SUB INP/OBS CARE 3/50MIN Diagnoses Spontaneous complicated by delayed or excessive hemorrhage O03.6 Complete miscarriage O03.9 Hypotension I95.9 NOAH (acute kidney injury) N17.9 High anion gap metabolic acidosis E87.29 Hyperglycemia, unspecified R73.9
[2025-05-01 09:19] LABS: Appearance Urine Turbid (Clear); Glucose Urine UA 1+ (Negative); WBC Urine Automated 0-5 /hpf (0-5)
[2025-05-01 09:44] LABS: Bacteria Urine Automated 1+ (None Seen)
[2025-05-01 09:45] LABS: Amphetamines+Metham, Urine Neg (Neg); Cast Urine Automated 0-2 /lpf (0-2); MDMA (Ecstacy), Urine Neg (Neg); Marijuana, Urine Pos (Neg)
--- NOTE | 2025-05-01 10:18 | Electrocardiogram Report ---
Test Reason : Blood Pressure : */* mmHG Vent. Rate : 108 BPM Atrial Rate : 108 BPM P-R Int : 154 ms QRS Dur : 78 ms QT Int : 342 ms P-R-T Axes : 79 30 53 degrees QTcB Int : 458 ms Sinus tachycardia Otherwise normal ECG No previous ECGs available Confirmed by David Arriaza ([id number]) on 05/01/2025 10:17:54 AM Referred By: REFERRED SELF Confirmed By: David Arriaza
[2025-05-01 11:20] LABS: ALC (manual) 8.70 K/uL (1.2-3.4)
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
[2025-05-01 15:37] LABS: Base Excess VBG -2.9 mEq/L; HCO3 VBG 21 mmol/L; Oxygen Saturation VBG 62.8 %; PCO2 VBG 33 mmHg (38-50); PO2 VBG 37 mmHg; pH VBG 7.41 (7.36-7.41)
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
--- NOTE | 2025-05-01 17:57 | CT Scan Report ---
EXAMINATION: CT of the abdomen and pelvis performed without contrast TECHNIQUE: Helical CT images from the lung bases through the symphysis pubis were obtained without contrast. Coronal and sagittal reformatted images were generated at a workstation for further assessment. Dose reduction techniques were achieved by using automatic exposure control and/or adjustment of mA and/or kV according to patient size and/or use of iterative reconstruction technique. COMPARISON: None HISTORY: Vaginal bleeding. Leukocytosis FINDINGS: Lower chest: No consolidation. No pleural effusion or pneumothorax. Streaky bibasilar atelectasis peripherally. Liver: No suspicious liver lesions. Gallbladder: No gallstones. No evidence of acute cholecystitis. Spleen: Normal size. Pancreas: No suspicious pancreatic lesions. The pancreatic duct is not dilated. Adrenal glands: No adrenal nodules. Kidneys: No hydronephrosis or obstructing renal stones. Bladder / Pelvic organs: A Evans catheter is in place. The bladder is incompletely distended. The uterus is present. There is thickening of the endometrial stripe. Visualization is limited due to noncontrast technique, however this appears to measure up to 2.5 cm in the AP dimension in the sagittal plane. A small fibroid is seen at the fundus.. Bowel: No bowel obstruction. No abnormal bowel wall thickening. The appendix is unremarkable. Diffusely fluid-filled loops of small and large bowel. Moderate large bowel gaseous distention. Lymph nodes: No retroperitoneal, mesenteric, or pelvic lymphadenopathy. Peritoneum / Retroperitoneum: No free fluid or air within the abdomen. Vessels: No infrarenal aortic aneurysm. Bones and soft tissues: No suspicious lesion in the bones. IMPRESSION: The endometrial stripe appears thickened, with precise measurement limited due to technique, however which may be as much is 2.5 cm, which is abnormal. Recommend follow-up pelvic ultrasound and gynecology consult. Numerous fluid-filled loops of small and large bowel, without obstruction, most compatible with enteritis. Electronically signed by David Flower 05-01-2025 5:57 PM
[2025-05-02 05:19] LABS: Hematocrit (blood only) 27.7 % (37.0-47.0); Hemoglobin 9.7 g/dl (12.0-16.0); Immature Granulocytes # (auto) 0.12 K/uL (0.01-0.20); Immature Granulocytes % (auto) 0.8 %; Mean Corpuscular Hemoglobin 30.6 pg (25.0-34.0); Mean Corpuscular Volume 87.4 fL (80.0-100.0); Platelet Count 123 K/uL (130-400); RDW Standard Deviation 54.0 fL (36.4-46.3); Red Blood Count 3.17 M/uL (4.20-5.40); White Blood Count 14.72 K/ul (4.8-10.8)
[2025-05-02 05:27] LABS: Alanine Aminotransferase 134.0 U/L (7-52); Albumin Globulin Ratio 1.7 (0.9-2); Alkaline Phosphatase 36.0 U/L (34-104); Anion Gap 5.0 (3-11); Bilirubin,Total 0.4 mg/dl (0.2-1.0); Blood Urea Nitrogen 21.0 mg/dl (6-23); Calcium 7.5 mg/dl (8.6-10.3); Carbon Dioxide 23.0 mmol/L (21-32); Chloride 110.0 mmol/L (98-107); Creatinine Clr Calc Pharmacy 50.3 ml/min; Globulin 1.8 gm/dl (2.5-4.0); Glucose 108.0 mg/dl (70-99(Fasting)); Magnesium 2.2 mg/dl (1.7-2.4); Potassium 3.9 mmol/L (3.5-5.1); Sodium 138.0 mmol/L (136-145); Total Protein 4.8 gm/dl (6.0-8.3)
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
[2025-05-02] MEDS: REMOVE NICODERM PATCH SCH (08:56)
[2025-05-02] MEDS: NICOTINE 14 MG/24 HR PATCH TD SCH (08:56)
[2025-05-02] MEDS: SIMETHICONE 80 MG CHEW PO PRN (08:57)
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
--- NOTE | 2025-05-02 14:21 | Gastrointestinal Consultation ---
Date of Consultation May 02, 2025 Assessment & Plan (1) Abnormal LFTs (liver function tests): (2) Cardiac arrest: Plan The patient is a 40-year-old woman with no significant past medical history status post cardiac arrest post vaginal hemorrhage and syncope now with abnormal liver function tests. Recommendations: The patient's transaminases are mildly elevated which are expected given cardiac arrest and global hypoperfusion. With significant shock liver 1 would expect t ransaminases to a greater extent. Other indicators of hypoperfusion include elevated troponins, elevated lactate as well as acute kidney injury. Suspect a component of AST elevation due to administered CPR and chest wall trauma Anticipate brisk normalization of liver function tests-trend daily Patient with no significant risk factors for viral hepatitis or history of liver disease. If LFTs remain persistently elevated then outpatient evaluation for hepatitides can be considered. CT imaging does not reveal any significant abnormalities. Abdominal ultrasound is performed but not finalized but appears to have no significant gallbladder or biliary ductal abnormalities. Will await final report History of Present Illness Reason for Consultation: Abnormal liver function tests Attending Physician: Skylar Echeverria MD History of Present Illness The patient is a 40-year-old woman who I am asked to see regarding abnormal liver function test. Prior to hospitalization the patient was noting intermittent vaginal bleeding/clots per vagina. Ultimately patient had a syncopal episode and became nonresponsive. On evaluation EMS noted the patient to be hypotensive and obtunded with difficulty breathing followed by cardiac arrest. The patient underwent CPR for approximately 70 minutes before achieving ROSC. Ultimately the patient did not require intubation and is now alert and oriented in the ICU. The patient is noted to have increased liver function test with total bilirubin normal at 0.4, AST of 245, ALT of 135. Additional aberrations labs include increased troponin, increased lactate of 2.3. CT of the abdomen pelvis shows fluid-filled loops of small bowel suggestive of possible enteritis. On interview the patient is asymptomatic from a GI perspective without any nausea, vomiting, odynophagia, dysphagia, early satiety, weight loss, diarrhea, melena or any hematochezia. She has some chest wall pain from cracked ribs from CPR. She has no known history of liver disease and has been following a course of celibacy with her current partner for the last 10 years. She has no history of illicit drug use except for occasional marijuana use and has never used IV drugs. There is no family history of liver disease. The patient denies any liver symptoms such as acholic stools, darkening of the urine, jaundice, icterus, easy bruisability. Allergies Allergy/AdvReac Type Severity Reaction Status Date / Time latex Allergy Severe Swelling Verified 04/30/25 22:56 of Lip/Tongue/Throat procaine [From Novocain] Allergy Severe Anaphylaxis--ALL Verified 04/30/25 22:56 "RADHA" MEDICATIONS Home Medications Medication Instructions Recorded Confirmed Type ibuprofen 200 mg tablet 400 - 600 mg PO DIRECTED PRN 04/30/25 04/30/25 History Pain Patient History Medical History Migraine Family History Other Migraine Social History Smoking Status: Current every day smoker Tobacco Type: Cigarettes Cigarettes Per Day: 3; Second Hand Exposure: No; Do You Dip or Chew Tobacco: No; Tobacco Cessation Education Requested by Patient: No Hx Alcohol Use: No Hx Substance Use: No Preferred Language: Sami Communication Ability: Effective Waste Hand Required: No Beliefs That Will Affect Care: None Current Living Situation: Family Current Living Situation Comment: lives with mother Other Information That Helps Us Care for You: No Feels Safe at Home: Yes Safety Concerns: Feels Safe At This Time Assistive Devices: None Review of Systems Constitutional: + fatigue and + weakness; no fever, no c hills, no sweats, no body aches, no malaise, no anorexia and no weight loss Eyes: no problem reported Ear, Nose, Mouth, Throat: no problem reported Respiratory: no problem reported Cardiovascular: no problem reported Gastrointestinal: as per Subjective / HPI Genitourinary: + abnormal vaginal bleeding Musculoskeletal: no problem reported Integumentary: no problem reported Neurologic: no problem reported Psychiatric: + anxiety Endocrine: no problem reported Hematologic / Lymphatic: no easy bleeding, no easy bruising and no coagulopathy Allergy / Immunological: no problem reported Physical Exam Constitutional: well nourished and comfortable; no acute distress and not in distress Eyes: PERRL, conjunctivae normal, anicteric sclerae ENMT: external ear and nose normal, oropharynx normal Neck: trachea midline, no thyromegaly Respiratory: normal respiratory effort, lungs clear to auscultation Cardiovascular: RRR, no murmur, no edema Gastrointestinal (Abdomen): normal bowel sounds, soft, nontender, no hepatosplenomegaly Musculoskeletal: no cyanosis or clubbing, extremities motor strength 5/5 Skin: no rashes, warm and dry Neurologic: PERRL, EOMI, accommodation nl, no face palsy, no dysarthria Psychiatric: A+Ox3, euthymic affect Results & Data Vital Signs (Past 12 Hours) Vital Signs Temp Pulse Pulse Resp BP BP Pulse Ox 05/02/25 12:00 62 15 97 05/02/25 11:00 60 15 05/02/25 10:48 36.9 C 60 20 117/72 99 05/02/25 10:46 117/72 05/02/25 10:27 61 13 99 05/02/25 10:06 71 18 97 05/02/25 10:04 143/79 H 05/02/25 10:03 68 20 98 05/02/25 10:00 36.9 C 05/02/25 09:00 116/68 05/02/25 09:00 65 17 98 05/02/25 08:24 65 18 98 05/02/25 08:00 05/02/25 08:00 36.8 C 53 L 16 126/72 98 05/02/25 08:00 69 05/02/25 07:00 67 21 99 05/02/25 07:00 120/72 05/02/25 06:00 121/77 05/02/25 06:00 69 21 121/77 98 05/02/25 05:00 59 L 20 114/72 97 05/02/25 04:00 36.6 C 05/02/25 04:00 70 18 121/74 96 05/02/25 03:00 83 16 102/64 97 O2 Del Method 05/02/25 12:00 05/02/25 11:00 05/02/25 10:48 Room Air 05/02/25 10:46 05/02/25 10:27 05/02/25 10:06 05/02/25 10:04 05/02/25 10:03 05/02/25 10:00 05/02/25 09:00 05/02/25 09:00 05/02/25 08:24 05/02/25 08:00 Room Air 05/02/25 08:00 Room Air 05/02/25 08:00 05/02/25 07:00 05/02/25 07:00 05/02/25 06:00 05/02/25 06:00 Room Air 05/02/25 05:00 Room Air 05/02/25 04:00 05/02/25 04:00 Room Air 05/02/25 03:00 Room Air PG Care Time/CCT Total # of Minutes Spent Total Time Spent with Patient: Total time spent is greater than 50% in coordination of care (as documented) at patient's floor/unit and/or counseling patient: [place] [address] IN/OBS CONSULT LVL 3,45M Patient Type New History Expanded Problem Focused Exam Detailed Medical Decision Making Moderate Complexity Diagnoses Abnormal LFTs (liver function tests) R79.89 Cardiac arrest I46.9
--- NOTE | 2025-05-02 14:59 | Ultrasound Report ---
EXAMINATION: US abdomen right upper quadrant COMPARISON: None HISTORY: Elevated LFTs TECHNIQUE: The right upper quadrant of the abdomen was scanned in standard fashion with specialized ultrasound transducers using both german scale and limited color Doppler techniques. Findings: Liver: The liver demonstrates normal homogeneous echotexture. No evidence of a focal hepatic mass or intrahepatic biliary ductal dilatation. The main portal vein is patent with antegrade flow. The liver measures 14.1 cm. Gallbladder: The gallbladder is well distended and of normal morphology. There is no wall thickening, pericholecystic fluid, sonographic Downing's sign nor evidence for cholelithiasis. Bile Ducts: Both the intra- and extrahepatic biliary system are of normal callber. The common bile duct measures 3.5 mm in diameter. Pancreas: Visualized portions of the head and body of the pancreas are unremarkable. Right kidney: Normal echotexture, without mass or hydronephrosis. Right kidney craniocaudal dimension: 10.5 cm Fluid: There may be trace ascites adjacent to the liver. Impression: 1. Normal sonographic appearance of the liver. 2. There appears to be trace ascites adjacent to the liver. Electronically signed by David Flower 05-02-2025 2:59 PM
[2025-05-03 02:56] LABS: Cdiff Toxin B Gene (2yr or >) Negative Cdiff Gene (Neg)
[2025-05-03 06:28] LABS: Hematocrit (blood only) 28.4 % (37.0-47.0); Hemoglobin 9.6 g/dl (12.0-16.0); Immature Granulocytes # (auto) 0.19 K/uL (0.01-0.20); Immature Granulocytes % (auto) 1.6 %; Mean Corpuscular Hemoglobin 30.1 pg (25.0-34.0); Mean Corpuscular Volume 89.0 fL (80.0-100.0); Platelet Count 152 K/uL (130-400); RDW Standard Deviation 54.6 fL (36.4-46.3); Red Blood Count 3.19 M/uL (4.20-5.40); White Blood Count 11.59 K/ul (4.8-10.8)
[2025-05-03 07:00] LABS: Alanine Aminotransferase 124.0 U/L (7-52); Albumin Globulin Ratio 1.6 (0.9-2); Alkaline Phosphatase 39.0 U/L (34-104); Anion Gap 6.0 (3-11); Bilirubin,Total 0.4 mg/dl (0.2-1.0); Blood Urea Nitrogen 12.0 mg/dl (6-23); Calcium 8.0 mg/dl (8.6-10.3); Carbon Dioxide 23.0 mmol/L (21-32); Chloride 111.0 mmol/L (98-107); Creatinine Clr Calc Pharmacy 51.0 ml/min; Globulin 2.1 gm/dl (2.5-4.0); Glucose 106.0 mg/dl (70-99(Fasting)); Iron 42.0 mcg/dl (35-150); Magnesium 2.1 mg/dl (1.7-2.4); Potassium 3.5 mmol/L (3.5-5.1); Sodium 140.0 mmol/L (136-145); Total Iron Binding Cap Calc 311.0 mcg/dl (250-450); Total Protein 5.5 gm/dl (6.0-8.3); Transferrin 222.0 mg/dl (200-360); Transferrin (FE) Percent Satur 14.0 % (15-50)
[2025-05-03 07:18] LABS: Ferritin 117.0 ng/ml (8-388)
[2025-05-03 07:58] LABS: Folate (Folic Acid),Ser orPlas 5.31 ng/ml (>5.38)
[2025-05-03 07:59] LABS: Vitamin B12 241.0 pg/ml (180-914)
--- NOTE | 2025-05-03 09:33 | Gastroenterology Progress Note ---
Date of Service May 03, 2025 Assessment & Plan (1) Abnormal LFTs (liver function tests): Plan [id number] with h/o elevated LFT 2/2 liver shock r/t acute blood loss r/t completed . Since arrival to hospital she has done well from GI perspective without any concerning symptoms. (1) Elevated LFTs Recommendations - Presentation remains consistent with liver shock r/t relative hypoperfusion during syncope event. - Reviewed LFTs and US with patient. LFTs downtrending. No signs of Liver disease on US. - Recommended f/u with PCP in outpatient to confirm resolution of LFTs. Could consider extending LFT work up if LFTs fail to normalize over the next 1-2 months. - In the meantime would continue to avoid hepatotoxins. - From a GI perspective will likely plan to sign off on the case once reviewed with Attending GI. - Further recommendations to come with Supervising GI provider on medical rounds. Please see co-signature comments. Admission and Anticipated Discharge Date Admission Date: April 30, 2025 Supervising Physician Co-Signing Physician Notes I saw and examined this patient with our nurse practitioner and agree with her assessment and plan. Clinically improving. Liver enzymes trending downward. No signs of significant hepatic dysfunction or decompensation. Suspect abnormal liver tests related to recent cardiac event. Will continue to monitor. Subjective 40 year old female is seen today on daily GI rounds for elevated LFTs. She was seen yesterday by our colleague Dr. Andersen. I reviewed his notes. Dr. Andersen HPI - 05/02/25 - The patient is a 40-year-old woman who I am asked to see regarding abnormal liver function test. Prior to hospitalization the patient was noting intermittent vaginal bleeding/clots per vagina. Ultimately patient had a syncopal episode and became nonresponsive. On evaluation EMS noted the patient to be hypotensive and obtunded with difficulty breathing followed by cardiac arrest. The patient underwent CPR for approximately 70 minutes before achieving ROSC. Ultimately the patient did not require intubation and is now alert and oriented in the ICU. The patient is noted to have increased liver function test with total bilirubin normal at 0.4, AST of 245, ALT of 135. Additional aberrations labs include increased troponin, increased lactate of 2.3. CT of the abdomen pelvis shows fluid-filled loops of small bowel suggestive of possible enteritis. On interview the patient is asymptomatic from a GI perspective without any nausea, vomiting, odynophagia, dysphagia, early satiety, weight loss, diarrhea, melena or any hematochezia. She has some chest wall pain from cracked ribs from CPR. She has no known history of liver disease and has been following a course of celibacy with her current partner for the last 10 years. She has no history of illicit drug use except for occasional marijuana use and has never used IV drugs. There is no family history of liver disease. The patient denies any liver symptoms such as acholic stools, darkening of the urine, jaundice, icterus, easy bruisability. HPI 05/03/25 - Today patient reports she's doing well and she's eager to return home. She denies any jaundice, abdominal pain, N/V/D, changes in stools. Denies family history of Liver disease. Denies alcohol or drug abuse. Denies street tattoos. No exotic travel. Liver US sonographically normal. AST and ALT downtrending. T-Bili - 0.4, AST 146, ALT 124, Alk Phos 39. Review of Systems Review of Systems: See HPI Physical Exam Physical Exam: Constitutional: NAD. Alert. Answering questions appropriately. Respiratory: Breathing is even, non-labored. Lungs clements are clear to auscultation anteriorly. Cardiovascular: Regular Rate and Rhythm, no murmurs, rubs or gallops appreciated. Gastrointestinal (Abdomen): Normoactive bowel sounds x4, soft, non-distended, non-tender. Musculoskeletal: Lying in bed comfortably. No peripheral edema. Results & Data Results & Data Vital Signs (Past 12 Hours) Vital Signs Temp Pulse Pulse Resp BP Pulse Ox O2 Del Method 05/03/25 07:50 98.2 F 71 16 124/73 97 Room Air 05/03/25 03:37 98.6 F 87 19 127/68 97 Room Air 05/02/25 23:06 98.1 F 64 20 121/67 98 Room Air 05/02/25 22:29 64 Laboratory Results 05/01/25 07:27 Urine Culture - Final Urine,Indwelling Cath No growth - less than 1,000 colonies/mL. 05/01/25 01:16 Aerobic Blood Culture - Preliminary Blood No growth in Aerobic bottle after 48 hours. Anaerobic Blood Culture - Final 05/01/25 01:16 Aerobic Blood Culture - Preliminary Blood No growth in Aerobic bottle after 48 hours. Anaerobic Blood Culture - Final 05/03/25 05/03/25 05/02/25 05:49 02:00 12:46 WBC 11.59 H RBC 3.19 L Hgb 9.6 L 10.1 L Hct 28.4 L MCV 89.0 MCH 30.1 MCHC 33.8 RDW Std Deviation 54.6 H RDW Coeff of Siddhartha 16.9 H Plt Count 152 MPV 11.0 Immature Gran % (Auto) 1.6 Neut % (Auto) 72.2 Lymph % (Auto) 18.9 [place] % (Auto) 6.6 Eos % (Auto) 0.4 Baso % (Auto) 0.3 Neut # (Auto) 8.36 H Lymph # (Auto) 2.19 [place] # (Auto) 0.77 H Eos # (Auto) 0.05 Baso # (Auto) 0.03 Immature Gran # (Auto) 0.19 Sodium 140 Potassium 3.5 Chloride 111 H Carbon Dioxide 23 Anion Gap 6 BUN 12 Creatinine 1.44 H Est Cr Clr Drug Dosing 51.0 eGFR 47.45 BUN/Creatinine Ratio 8.3 L Glucose 106 H Calcium 8.0 L Phosphorus 2.3 L Magnesium 2.1 Iron 42 TIBC 311 Transferrin 222 Transferrin % Sat 14 L Ferritin 117.0 Total Bilirubin 0.4 AST 146 H ALT 124 H Alkaline Phosphatase 39 Total Protein 5.5 L Albumin 3.4 Globulin 2.1 L Albumin/Globulin Ratio 1.6 Vitamin B12 241 Folate 5.31 L Stl C. cayetanensis PCR Cancelled Stool Rotavirus A PCR Cancelled Stl Adenov F 40/41 PCR Cancelled Stool Astrovirus (PCR) Cancelled Stool Campylobacter PCR Cancelled Stl C. diff Tox B Gene Negative Cdiff Gene Stl C. diff [id number] NEGATIVE Stool Cryptosporidium PCR Cancelled Stl E.coli Shiga Tox PCR Cancelled Stool E coli O157 PCR Cancelled Stl Enterotoxigenic E PCR Cancelled Stool EPEC (PCR) Cancelled Stool EAEC (PCR) Cancelled Stl E. histolytica PCR Cancelled Stool Giardia Lamblia PCR Cancelled Stool Salmonella PCR Cancelled Stool Sapovirus (PCR) Cancelled Stl P. shigelloides PCR Cancelled Stl Shigella/EIEC PCR Cancelled St Y.enterocolitica PCR Cancelled Stool Vibrio (PCR) Cancelled Stl Vibrio cholerae PCR Cancelled Stl Norovirus GI/GII PCR Cancelled Blood Type Antibody Screen Crossmatch 04/30/25 22:43 WBC RBC Hgb Hct MCV MCH MCHC RDW Std Deviation RDW Coeff of Siddhartha Plt Count MPV Immature Gran % (Auto) Neut % (Auto) Lymph % (Auto) [place] % (Auto) Eos % (Auto) Baso % (Auto) Neut # (Auto) Lymph # (Auto) [place] # (Auto) Eos # (Auto) Baso # (Auto) Immature Gran # (Auto) Sodium Potassium Chloride Carbon Dioxide Anion Gap BUN Creatinine Est Cr Clr Drug Dosing eGFR BUN/Creatinine Ratio Glucose Calcium Phosphorus Magnesium Iron TIBC Transferrin Transferrin % Sat Ferritin Total Bilirubin AST ALT Alkaline Phosphatase Total Protein Albumin Globulin Albumin/Globulin Ratio Vitamin B12 Folate Stl C. cayetanensis PCR Stool Rotavirus A PCR Stl Adenov F 40/41 PCR Stool Astrovirus (PCR) Stool Campylobacter PCR Stl C. diff Tox B Gene Stl C. diff [id number] Stool Cryptosporidium PCR Stl E.coli Shiga Tox PCR Stool E coli O157 PCR Stl Enterotoxigenic E PCR Stool EPEC (PCR) Stool EAEC (PCR) Stl E. histolytica PCR Stool Giardia Lamblia PCR Stool Salmonella PCR Stool Sapovirus (PCR) Stl P. shigelloides PCR Stl Shigella/EIEC PCR St Y.enterocolitica PCR Stool Vibrio (PCR) Stl Vibrio cholerae PCR Stl Norovirus GI/GII PCR Blood Type A Positive Antibody Screen NEGATIVE Crossmatch See Detail Diagnostic Findings Liver Ultrasound 05/02/25 13:23 EXAMINATION: US abdomen right upper quadrant COMPARISON: None HISTORY: Elevated LFTs TECHNIQUE: The right upper quadrant of the abdomen was scanned in standard fashion with specialized ultrasound transducers using both german scale and limited color Doppler techniques. Findings: Liver: The liver demonstrates normal homogeneous echotexture. No evidence of a focal hepatic mass or intrahepatic biliary ductal dilatation. The main portal vein is patent with antegrade flow. The liver measures 14.1 cm. Gallbladder: The gallbladder is well distended and of normal morphology. There is no wall thickening, pericholecystic fluid, sonographic Downing's sign nor evidence for cholelithiasis. Bile Ducts: Both the intra- and extrahepatic biliary system are of normal callber. The common bile duct measures 3.5 mm in diameter. Pancreas: Visualized portions of the head and body of the pancreas are unremarkable. Right kidney: Normal echotexture, without mass or hydronephrosis. Right kidney craniocaudal dimension: 10.5 cm Fluid: There may be trace ascites adjacent to the liver. Impression: 1. Normal sonographic appearance of the liver. 2. There appears to be trace ascites adjacent to the liver. Electronically signed by David Flower 05-02-2025 2:59 PM PG Care Time/CCT Total # of Minutes Spent Total Time Spent with Patient: Total time spent is greater than 50% in coordination of care (as documented) at patient's floor/unit and/or counseling patient: Coding Level of Care Code 39648 SUB INP/OBS CARE 2/35MIN Diagnoses Abnormal LFTs (liver function tests) R79.89
[2025-05-03] MEDS: POT PHOSPHATE MONOBASIC W/ SOD TAB PO SCH (13:22)
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
[2025-05-04 06:28] LABS: Hematocrit (blood only) 26.7 % (37.0-47.0); Hemoglobin 9.1 g/dl (12.0-16.0); Immature Granulocytes # (auto) 0.22 K/uL (0.01-0.20); Immature Granulocytes % (auto) 2.3 %; Mean Corpuscular Hemoglobin 30.5 pg (25.0-34.0); Mean Corpuscular Volume 89.6 fL (80.0-100.0); Platelet Count 156 K/uL (130-400); RDW Standard Deviation 54.2 fL (36.4-46.3); Red Blood Count 2.98 M/uL (4.20-5.40); White Blood Count 9.47 K/ul (4.8-10.8)
[2025-05-04 06:51] LABS: Alanine Aminotransferase 99.0 U/L (7-52); Albumin Globulin Ratio 1.6 (0.9-2); Alkaline Phosphatase 36.0 U/L (34-104); Anion Gap 7.0 (3-11); Bilirubin,Total 0.4 mg/dl (0.2-1.0); Blood Urea Nitrogen 9.0 mg/dl (6-23); Calcium 7.9 mg/dl (8.6-10.3); Carbon Dioxide 23.0 mmol/L (21-32); Chloride 111.0 mmol/L (98-107); Creatinine Clr Calc Pharmacy 60.2 ml/min; Globulin 2.1 gm/dl (2.5-4.0); Glucose 100.0 mg/dl (70-99(Fasting)); Magnesium 2.0 mg/dl (1.7-2.4); Potassium 3.4 mmol/L (3.5-5.1); Sodium 141.0 mmol/L (136-145); Total Protein 5.5 gm/dl (6.0-8.3)
[2025-05-04] MEDS: POTASSIUM CHLORIDE CRTAB 20 MEQ TABCR PO STA (09:49)
[2025-05-04] MEDS: POTASSIUM CHLORIDE / WTR 10 MEQ/100 ML PLCT IV SCH (09:49)
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
[2025-05-04] MEDS: AMOXICILLIN/CLAVULANATE 875 MG TAB PO SCH (12:19)
[2025-05-05 07:28] LABS: Marijuana Quant, GCMS Urine 332 ng/mL (<5); Norfentanyl, Urine 3.3 ng/mL (<0.5); medMATCH Fentanyl, Urine DNR; medMATCH Norfentanyl, Urine DNR
== END 2025-05-04 14:23 | disposition home or self-care (01) | DRG 779 ==
LOC: ED 22:33 → SUATTDRO 23:32 → 1E 23:32 → 4W 05-02 16:01